=== PATIENT | female | born 1955 | race Hispanic/Latino ===

== ENCOUNTER 2017-04-20 13:05 | Emergency (ER) | payer BC, SELFPAY ==
--- NOTE | 2017-04-20 14:29 | RAD ---
CHEST TWO VIEWS HISTORY: Cough and fever. COMPARISON: 06/30/2013. FINDINGS: Cardiac silhouette and pulmonary vasculature are unremarkable. Mediastinum is midline. There is no confluent air space consolidation, pneumothorax, or pleural fluid evident. Degenerative changes invo lve the thoracic spine on the lateral view. IMPRESSION: No active cardiopulmonary abnormalities are demonstrated. POS: [facility]
== END 2017-04-20 16:20 | disposition home or self-care (01) ==
LOC: ERS 13:05
DX: J20.9 Acute bronchitis, unspecified (principal); E03.9 Hypothyroidism, unspecified; I10 Essential (primary) hypertension
CPT/HCPCS: 71020; 87081; 87430; 94640; J7620

== ENCOUNTER 2018-06-11 21:36 | Emergency (ER) | payer SELFPAY ==
[2018-06-11 22:04] LABS: #Basophils 0.1 thou/uL (0.0-0.2); #Eosinphils 0.1 thou/uL (0.0-0.7); #Lymphocytes 3.1 thou/uL (1.20-3.40); #Monocytes 0.6 thou/uL (0.11-0.59); #Neutrophils 7.1 thou/uL (1.40-6.50); %Basophils 0.8 % (0.0-1.0); %Eosinophils 1.3 % (0.0-10.0); %Lymphocytes 28.4 % (21.0-51.0); %Neutrophils 64.6 % (42.0-75.0); Hemoglobin 12.9 g/dL (12.0-16.0); Mean Corpuscular HGB CONC 32.5 g/dL (32.0-36.0); Mean Corpuscular Hemoglobin 30.4 pg (27.0-31.0); Mean Corpuscular Volume 93.5 fL (78.0-98.0); Mean Platelet Volume 8.8 fL (7.4-10.4); Platelet Count 269 thou/uL (130-400); RBC Distribution Width 12.4 % (11.5-14.5); Red Blood Cell (RBC) Count 4.26 mill/uL (4.20-5.40); White Blood Cell (WBC) Count 10.9 thou/uL (4.8-10.8)
[2018-06-11 22:06] LABS: Bilirubin Negative (Negative); Blood, Urine Large (Negative); Clarity TURBID (Clear); Glucose, Urine (Dipstick) Negative (Negative); Leukocyte Large (Negative); Nitrite Negative (Negative); Protein, Urine (Dipstick) 100 mg/dL (Neg-Trace); Specific Gravity, Urine 1.014 (1.002-1.036); Urobilinogen 0.2 mg/dL (0.2-1.0); pH, Urine 6.5 (5.0-9.0)
[2018-06-11 22:07] LABS: Bacteria/HPF None Seen HPF (None Seen)
[2018-06-11 22:08] LABS: Pathc Cast-AUWi Flag 30.98 (0-2.49); Yeast-AUWi Flag 54.4 (0-25.0)
[2018-06-11 22:16] LABS: RBC/HPF GREATER THAN 50-TNTC HPF (0-3)
[2018-06-11 22:17] LABS: Hyaline Casts/LPF NONE SEEN LPF (0-3 Hyaline)
[2018-06-11 22:24] LABS: ALT (SGPT) Less than 7 U/L (8-55); AST (SGOT) 12 U/L (5-34); Alkaline Phosphatase 87 U/L (40-150); Anion Gap 9 mmol/L (10-20); BUN (Urea Nitrogen) 16 mg/dL (9.8-20.1); Bilirubin, Total 0.5 mg/dL (0.2-1.2); Calc. Creatinine Clearance 0 mL/min (70-130); Calcium 9.3 mg/dL (7.8-10.44); Carbon Dioxide 31 mmol/L (23-31); Chloride 104 mmol/L (98-107); Estimated GFR-MDRD 55; Globulin 4.2 g/dL (2.4-3.5); Glucose 100 mg/dL (80-115); Protein, Total 8.2 g/dL (6.0-8.3); Sodium 141 mmol/L (136-145)
[2018-06-11] MEDS ORDERED: Lidocaine 1% PF 5 ML VIAL ONE (22:47)
[2018-06-11] MEDS ORDERED: cefTRIAXone\\ROCEPHIN 1 GM VIAL ONE (22:47)
[2018-06-11] MEDS ORDERED: Potassium Chloride 20 MEQ TAB ONE ×2 (22:47→22:55)
== END 2018-06-11 23:25 | disposition home or self-care (01) ==
LOC: ERS 21:36
DX: N39.0 Urinary tract infection, site not specified (principal); E03.9 Hypothyroidism, unspecified; I10 Essential (primary) hypertension
CPT/HCPCS: 36415; 80053; 81003; 81015; 85025; 96372; J0696; J2001

== ENCOUNTER 2019-05-19 20:14 | Emergency (ER) | payer SELFPAY ==
[2019-05-19 20:43] LABS: #Lymphocytes 1.2 thou/uL (1.20-3.40); #Monocytes 0.7 thou/uL (0.11-0.59); #Neutrophils 3.6 thou/uL (1.40-6.50); %Basophils 0.3 % (0.0-1.0); %Eosinophils 0.6 % (0.0-10.0); %Lymphocytes 21.8 % (21.0-51.0); %Monocytes 12.8 % (0.0-10.0); %Neutrophils 64.5 % (42.0-75.0); Hemoglobin 12.3 g/dL (12.0-16.0); Mean Corpuscular HGB CONC 33.1 g/dL (32.0-36.0); Mean Corpuscular Hemoglobin 30.6 pg (27.0-31.0); Mean Corpuscular Volume 92.5 fL (78.0-98.0); Mean Platelet Volume 9.8 fL (7.4-10.4); Platelet Count 211 thou/uL (130-400); RBC Distribution Width 12.5 % (11.5-14.5); Red Blood Cell (RBC) Count 4.01 mill/uL (4.20-5.40); White Blood Cell (WBC) Count 5.6 thou/uL (4.8-10.8)
[2019-05-19] MEDS ORDERED: cefTRIAXone\\ROCEPHIN 500 MG VIAL ONE (21:00)
[2019-05-19] MEDS ORDERED: Acetaminophen 500 MG TAB ONE (21:00)
[2019-05-19] MEDS ORDERED: cefTRIAXone\\ROCEPHIN 2 GM VIAL ONE (21:05)
[2019-05-19 21:10] LABS: Troponin I Less than 0.010 ng/mL (< 0.028)
[2019-05-19 21:11] LABS: Bacteria/HPF None Seen HPF (None Seen); Bilirubin Negative (Negative); Blood, Urine Trace (Negative); Clarity Clear (Clear); Glucose, Urine (Dipstick) Normal (Negative); Leukocyte Negative Leu/uL (Negative); Nitrite Negative (Negative); Protein, Urine (Dipstick) Negative (Neg-Trace); Squamous Epithelial None Seen HPF (0-3); Urobilinogen Normal mg/dL (Less than 2); WBC/HPF 0-3 HPF (0-3)
[2019-05-19 21:26] LABS: ALT (SGPT) 14 U/L (8-55); AST (SGOT) 20 U/L (5-34); Albumin 4.1 g/dL (3.4-4.8); Alkaline Phosphatase 68 U/L (40-110); Anion Gap 13 mmol/L (10-20); BUN (Urea Nitrogen) 22 mg/dL (9.8-20.1); Bilirubin, Total 0.4 mg/dL (0.2-1.2); Calc. Creatinine Clearance 0 mL/min (70-130); Calcium 8.8 mg/dL (7.8-10.44); Carbon Dioxide 27 mmol/L (23-31); Chloride 102 mmol/L (98-107); Estimated GFR-MDRD 44; Globulin 4.2 g/dL (2.4-3.5); Glucose 93 mg/dL (80-115); Potassium 3.7 mmol/L (3.5-5.1); Protein, Total 8.3 g/dL (6.0-8.3); Sodium 138 mmol/L (136-145)
--- NOTE | 2019-05-19 21:26 | RAD ---
ONE VIEW CHEST: 05/19/19 HISTORY: Cough x3 days. Sepsis alert. COMPARISON: 04/20/17. FINDINGS: Portable upright chest demonstrates a normal cardiac silhouette. Pulmonary vessels and hilum are norm al. No consolidation or mass. No pneumothorax or osseous abnormality. IMPRESSION: No acute cardiopulmonary process. POS: [facility]
[2019-05-19] MEDS ORDERED: Oseltamivir 75 MG CAP PO SCH (21:45)
--- NOTE | 2019-05-21 14:00 | EKG ---
Test Reason : Blood Pressure : / mmHG Vent. Rate : 076 BPM Atrial Rate : 076 BPM P-R Int : 168 ms QRS Dur : 082 ms QT Int : 376 ms P-R-T Axes : 038 065 037 degrees QTc Int : 423 ms Normal sinus rhythm Normal ECG Confirmed by YAZ AYOUB DO ([id number]), newspaper photo editor CRISTI BRADFORD ([id number]) on 05/21/2019 1:59:55 PM Referred By: Confirmed By:YAZ AYOUB DO
== END 2019-05-19 22:41 | disposition home or self-care (01) ==
LOC: ERS 20:14
DX: J10.1 Influenza due to other identified influenza virus with other respiratory manifestations (principal); E03.9 Hypothyroidism, unspecified; I10 Essential (primary) hypertension; M19.90 Unspecified osteoarthritis, unspecified site; Z79.899 Other long term (current) drug therapy
CPT/HCPCS: 51701; 71045; 80053; 81003; 81015; 83605; 84484; 85025; 87040; 87804; 93005; 96361; 96365; J0696